=== PATIENT | male | born 1935 | race Caucasian/White ===

== ENCOUNTER → 2016-05-24 | Outpatient (CLI) | payer MEDICARE, OTHER ==
[~2016-05-24] MED LIST: ALTACE10 MG PO; ASPIRIN EC81 MG PO; BYSTOLIC5 MG PO; FLONASE 50 MCG/16 GM NOSE; ICAPS TABLET1 EACH PO; NAPROSYN500 MG PO; NORVASC10 MG PO; OSTEO BI-FLEX1 EAC1 PO; THERAGRAN-M1 TAB PO; ZOCOR40 MG PO
== END | disposition disaster alternative care site (69) ==
LOC: GOPD 05-18
PROC: 3E0R33Z Introduction of Anti-inflammatory into Spinal Canal, Percutaneous Approach (ICD-10-PCS; principal; 2016-05-24)
PROC: 3E0R3BZ Introduction of Anesthetic Agent into Spinal Canal, Percutaneous Approach (ICD-10-PCS; 2016-05-24)
DX: M54.5 Low back pain (principal); M51.26 Other intervertebral disc displacement, lumbar region
CPT/HCPCS: J1040

== ENCOUNTER → 2016-07-26 | Outpatient (CLI) | payer MEDICARE, OTHER | END | disposition disaster alternative care site (69) | LOC: GOPD 07-23 | PROC: 3E0S33Z Introduction of Anti-inflammatory into Epidural Space, Percutaneous Approach (ICD-10-PCS; principal; 2016-07-26) | PROC: 3E0S3BZ Introduction of Anesthetic Agent into Epidural Space, Percutaneous Approach (ICD-10-PCS; 2016-07-26) | DX: M51.26 Other intervertebral disc displacement, lumbar region (principal); M54.5 Low back pain; I25.10 Atherosclerotic heart disease of native coronary artery without angina pectoris | CPT/HCPCS: J1040 ==